=== PATIENT | female | born 2000 | race Caucasian/White ===

== ENCOUNTER 2024-11-03 12:55 | Outpatient (AMB) | payer MEDICAID, SELFPAY ==
--- NOTE | 2024-11-03 13:03 | GYNCLNT_ITS ---
Vital Signs 11/03/24 13:14 Height 1.68 m Height Method Stated Weight 163.463 kg Weight Measurement Method Standing Scale BMI 58.1 BP 134/84 H Blood Pressure Source Automatic Cuff Blood Pressure Location Left Upper Arm Position Sitting Respiration 16 Pulse 84 Pulse Source Monitor Temp 98.5 F Temp Source Oral Pulse Oximetry (%) 97 Oxygen Delivery Method Room Air Allergies/Home Meds Allergies & Medications Allergies azithromycin Allergy (Severe, Verified 11/03/24 13:15) Hives fluconazole (From Diflucan) Allergy (Severe, Verified 11/03/24 13:15) Hives kiwi Allergy (Severe, Verified 11/03/24 13:15) Anaphylaxis raspberry Allergy (Severe, Verified 11/03/24 13:15) Anaphylaxis sulfamethoxazole Allergy (Severe, Verified 11/03/24 13:15) SWELLS,BLACKS OUT, VOMITS sumatriptan (From Imitrex) Allergy (Severe, Verified 11/03/24 13:15) Anaphylaxis trimethoprim Allergy (Severe, Verified 11/03/24 13:15) SWELLS,BLACKS OUT, VOMITS cephalexin (From Keflex) Allergy (Intermediate, Verified 11/03/24 13:15) Vomiting clindamycin Allergy (Intermediate, Verified 11/03/24 13:15) Flushing nitrofurantoin (From Macrobid) Allergy (Intermediate, Verified 11/03/24 13:15) Vomiting latex Allergy (Mild, Verified 11/03/24 13:15) RASH Medication Reconciliation albuterol sulfate 90 mcg/actuation aerosol inhaler (Ventolin HFA) 2 puff inhalation Q6H PRN Wheezing 07/09/18 [History Confirmed 11/03/24] loratadine-pseudoephedrine ER 10 mg-240 mg tablet,extended [id number] (Claritin-D 24 Hour) 1 tab PO QDAY PRN Allergy Symptoms 08/06/18 [History Confirmed 11/03/24] inhalational spacing device (Aerochamber MV spacer) #1 ea 08/12/18 [Rx Confirmed 11/03/24] labetalol 200 mg tablet 200 mg PO BID 05/26/23 [History Confirmed 11/03/24] fluticasone propionate 230 mcg-salmeterol 21 mcg/actuation HFA inhaler (Advair HFA) 1 puff inhalation BID 09/16/23 [History Confirmed 11/03/24] omeprazole 40 mg capsule,delayed release 40 mg PO QDAY 09/16/23 [History Confirmed 11/03/24] labetalol 100 mg tablet 200 mg (2 x 100 mg) PO BID 30 days #120 tabs 09/18/23 [Rx Confirmed 11/03/24] cetirizine 10 mg capsule (All Day Allergy (cetirizine)) 10 mg PO QDAY PRN allergy symptoms #30 caps 02/20/24 [Rx Confirmed 11/03/24] Intake Visit Data Collection New Patient or Established: Established Patient (seen at [facility] within 3 years) Reason for Visit:: - Pap smear and breast exam - Abdominal pain associated with menstruation - Breast pain and discharge - Urinary incontinence since Seen by Clinical Staff ONLY (RN/MA): No Dog Or Animal Sitter Required: No Do You Feel Safe at Home: Yes Authorities Contacted: N/A PCP or OBGYN visit in last 3 months: Yes Hx Now: No Are you currently on any form of Control: No Last menstrual period: 10/18/24 Pain Present Currently: No Pain Scale Used: Tapia-Villarreal/Numerical Pain scale:: 0 Smoking Status Smoking Status: Never smoker 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 1. Little interest or pleasure in doing things: not at all Social History Living Situation History Lives With: Children Housing: House Tobacco History Smoking Status: Never smoker Alcohol History Alcohol Intake: Former Alcohol Intake Frequency: holidays/special occasions only Domestic Abuse History Do You Feel Safe at Home: Yes Past Medical History Past Medical History Have you ever been diagnosed with any of the following: Neurological Problems Seizures: No Cardiology Problems Congestive Heart Failure: No Hypertension: Yes Respiratory Problems Chronic Obstructive Pulmonary Disease (COPD): No Asthma: Yes Stomache/Intestinal Problems Hepatitis: No Genital/Urinary Problems Renal Disease: No Reproductive Problems Endometriosis: No Genital Herpes: No Gonorrhea: No Pelvic Inflammatory Disease: No Previous Pregnancies: Yes Syphilis: No Uterine Prolapse: No Musculoskeletal Problems Fractures: Yes Endocrine Problems Diabetes Mellitus Type 1: No Diabetes Mellitus Type 2: No Blood Problems Anemia: Yes Psychologic Problems Depression: Yes Anxiety: Yes Eating Disorder: Yes Other Problems Hospitalization: Yes Down Syndrome: No Developmental Delay: No Shingles: No Falls: No Blood Transfusions: No Blood Transfusion Reaction: No Anesthesia Reactions: No Organ Transplant: No Chemotherapy: No Radiation Therapy: No Hyperbaric Therapy: No MRSA: No VRSA: No Vancomycin-Resistant Enterococci: No Human Immunodeficiency Virus (HIV): No Chicken Pox: Yes Measles: No Mumps: Yes Rubella (Peruvian Measles): No Pertussis: No Clostridium Difficile: No Cancer: No History of Present Illness HPI Narrative Lyn Sherman presents for a routine pap smear and breast exam, with additional complaints of abdominal pain and breast-related issues. The patient reports severe abdominal pain that worsens before her menstrual period, localized in the lower abdomen and radiating upwards. She describes the pain as bad and hurting. Regarding her breast concerns, the patient mentions leaking from one breast, particularly when squeezed. She also reports pain in one breast, specifically on the side. The patient has been using a heating pad for relief when the breast pain occurs. The patient reports ongoing issues with dizziness and severe shoulder pain. She also mentions that her spine has been messed up since her first . Additionally, the patient discloses concerns, including urinary incontinence ( I leak a lot ) following a performed in August of the previous year, approximately 14 months ago. The patient reports difficulty with her daughter's sleep patterns, stating that melatonin and melatonin chamomile chewables have been ineffective in maintaining consistent sleep for her child. Lyn also mentions ongoing legal proceedings related to child support and disability claims. She reports being denied disability three years ago and is currently seeking temporary or permanent disability status due to various health issues, including hypertension and anemia. Obstetric History - GPAL: A0 L2, CSx2 - history: - Delivered via in August 2023 (approximately 1 year and 2 months ago) - Attempted , but did not latch Medical History - depression - Hypertension - Iron deficiency anemia - Chronic pain (shoulder and spine) - Dizziness Surgical History - performed approximately 1 year and 2 months ago (August 2023) Medications and Supplements - Melatonin 1 mg - Given to patient's daughter, not effective - Melatonin chamomile chewables - Given to patient's daughter, effective in inducing sleep but not maintaining it Social History - Children: Has at least one young daughter - Legal Issues: Involved in ongoing court proceedings related to child support - Occupation: Currently unable to work, applying for disability - Living Situation: Patient is the sole provider for her child - Social Support: Lacks childcare support, 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 Gastrointestinal: Positive for abdominal pain. Genitourinary: Positive for urinary incontinence. Musculoskeletal: Positive for shoulder pain, back pain. Neurological: Positive for dizziness. Psychiatric: Positive for insomnia (in daughter). Other: Positive for breast pain, nipple discharge. Exam Narrative Physical exam: Breast: Palpable cyst noted in one breast. No nipple discharge observed on examination. General Limitations: no limitations General Appearance: alert, in no apparent distress and comfortable Head Head exam: atraumatic and normocephalic Eye Eye exam: Present normal appearance, PERRL and EOMI Neck Neck exam: Present normal inspection and full ROM Chest Chest inspection: Present normal inspection and symmetric chest wall rise; Absent tenderness Resp Respiratory exam: Present normal lung sounds bilaterally; Absent respiratory distress Card Cardiovascular exam: Present regular rate and normal rhythm Abdominal Abdominal exam: Present soft and normal bowel sounds; Absent tenderness, guarding, rebound or rigidity Neuro Neurological exam: Present alert and oriented X3 Psych Psychiatric exam: Present normal affect Assessment & Plan Diagnosis / Problem List (1) Encounter for Routine Gynecological Examination: (2) depression: Status: Acute (3) Acute pain in female pelvis: Status: Acute (4) Acute breast pain: Status: Acute (5) Nipple discharge: Status: Acute (6) Solitary cyst of left breast: Status: Acute (7) Encounter for screening for malignant neoplasm of cervix: Status: Acute (8) BMI 60.0-69.9, adult: Status: Acute (9) Essential (primary) hypertension: Status: Acute (10) Anemia, unspecified: Status: Acute (11) Encounter for issue of other medical certificate: Status: Acute Plan Lyn Sherman, female, presents with abdominal pain associated with menstruation, breast pain with discharge, and concerns about disability status. Abdominal pain Assessment: Patient reports severe abdominal pain, particularly pronounced before menstruation. The pain is localized and radiates upward. No previous imaging studies have been performed to evaluate this complaint. Plan: - Order pelvic ultrasound to evaluate for potential ovarian cysts or other pelvic pathology Breast pain and discharge Assessment: Patient reports breast pain, particularly on one side. Physical examination reveals a palpable cyst. There is also nipple discharge, which is likely physiologic given the patient's recent history of childbirth (approximately 14 months ). Plan: - Order breast ultrasound to further evaluate the palpable cyst - Recommend warm compress application (wet washcloth or shower) for 5 minutes daily to unclog ducts - Educate patient on use of heating pad for pain relief - Perform clinical breast exam Cervical cancer screening Assessment: Routine cervical cancer screening due. Plan: - Perform Pap smear Disability status Assessment: Patient requests disability documentation for legal proceedings. Current medical conditions include hypertension and anemia. Patient reports being previously denied disability 3 years ago. Plan: - Complete 6-month temporary disability form citing breast complaint and depression - Recommend follow-up in March for potential 6-month extension - Advise patient to establish care with a primary care physician for evaluation of permanent disability status Obesity Assessment: Patient reports significant weight gain since childbirth, which has interfered with obtaining necessary imaging studies. Plan: - Recommend consultation with primary care physician for potential referral for bariatric surgery evaluation - Discuss possibility of weight loss medications such as Wegovy Child's sleep disturbance Assessment: Patient reports her daughter has difficulty staying asleep. Previous trials of 1 mg melatonin and melatonin-chamomile chewables have been ine ffective. Plan: - Recommend increasing melatonin dosage to 2-2.5 mg - Advise administration 30 minutes before bedtime Office Procedures OB Clinic LOC & Office Proc's Nursing/Assessment Patient Status: Established Patient OB Clinic Nursing Assessment: Medication Reconciliation, Update PMH in EMR and Vital Signs OB Clinic Coordination of Care: Complex Care and Chronic Disease 1-5, Consent,records obtained, informed consent, Education Simp Pt/Fam, Lab and Imaging orders, Results/Orders obtained and Staff clarify orders Miscellaneous Interventions: Breast Exam and Pelvic/Pap Smear Set up Established Patient Charge Established Patient Point Assignment: 155 Established Patient Point Charge: EP Level 4 (120-155) In Clinic Procedures Pap Smear: Yes
[2024-11-03 13:14] VITALS: BP 134/84; PULSE 84; RESP 16; TEMP 36.9; O2SAT 97; BMI 58.1
== END 2024-11-03 13:38 | disposition home or self-care (01) ==
LOC: HODSOBC 12:55
PROVIDERS: PCP Family Medicine; Referring Provider Family Medicine; Supervising Provider Obstetrics & Gynecology; Visit Provider Obstetrics & Gynecology
DX: Z01.411 Encounter for gynecological examination (general) (routine) with abnormal findings (principal); N60.02 Solitary cyst of left breast; O99.345 Other mental disorders complicating the puerperium; F53.0 Postpartum depression; N64.4 Mastodynia; R10.2 Pelvic and perineal pain; N64.52 Nipple discharge; I10 Essential (primary) hypertension; D50.9 Iron deficiency anemia, unspecified; E66.9 Obesity, unspecified; Z68.44 Body mass index [BMI] 60.0-69.9, adult; Z02.79 Encounter for issue of other medical certificate; Z79.899 Other long term (current) drug therapy
CPT/HCPCS: 99214; Q0091; G0463

== ENCOUNTER 2024-11-24 09:55 | Outpatient (AMB) | payer MEDICAID, SELFPAY ==
[2024-11-24 10:37] VITALS: BP 132/79; PULSE 81; RESP 18; TEMP 36; O2SAT 98; BMI 58.0
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
== END 2024-11-24 10:52 | disposition home or self-care (01) ==
LOC: HODSOBC 09:55
PROVIDERS: PCP Obstetrics & Gynecology; Referring Provider Obstetrics & Gynecology; Supervising Provider Obstetrics & Gynecology; Visit Provider Obstetrics & Gynecology
DX: Z02.79 Encounter for issue of other medical certificate (principal); Z59.87 Material hardship due to limited financial resources, not elsewhere classified; Z56.0 Unemployment, unspecified; D64.9 Anemia, unspecified; I10 Essential (primary) hypertension; F41.9 Anxiety disorder, unspecified
CPT/HCPCS: 99213; G0463

== ENCOUNTER → 2025-02-08 | Outpatient (CLI) | payer MEDICAID, SELFPAY ==
--- NOTE | 2025-02-08 15:15 | XR_ITS ---
Examination: Breast ultrasound, unilateral, left complete INDICATIONS: Palpable lump upper inner left breast one year Date and time of exam: February 08, 2025 1519 hours Technique: Real-time paez scale ultrasonographic imaging performed left breast including all 4 quadrants as well as nipple retroareolar and axillary region. Findings: No cystic or solid mass involving either breast IMPRESSION: BI-RADS Category 1: Negative study Recommend repeating the study in 6 months if palpable abnormality persist
== END | disposition home or self-care (01) ==
PROVIDERS: PCP Family Medicine; Referring Provider Obstetrics & Gynecology; Visit Provider Obstetrics & Gynecology
DX: R92.8 Other abnormal and inconclusive findings on diagnostic imaging of breast (principal)
CPT/HCPCS: 76641

== ENCOUNTER 2025-03-16 13:00 | Outpatient (AMB) | payer MEDICAID, SELFPAY ==
--- NOTE | 2025-03-16 13:32 | AMB.GYNCLNOT ---
Vital Signs 03/16/25 13:33 Height 1.68 m Height Method Stated Weight 170.097 kg Weight Measurement Method Standing Scale BMI 60.2 BP 138/83 H Blood Pressure Source Automatic Cuff Blood Pressure Location Left Upper Arm Position Sitting Respiration 16 Pulse 88 Pulse Source Monitor Temp 98.2 F Temp Source Oral Pulse Oximetry (%) 98 Oxygen Delivery Method Room Air Allergies/Home Meds Allergies & Medications Allergies azithromycin Allergy (Severe, Verified 03/16/25 13:35) Hives fluconazole (From Diflucan) Allergy (Severe, Verified 03/16/25 13:35) Hives kiwi Allergy (Severe, Verified 03/16/25 13:35) Anaphylaxis raspberry Allergy (Severe, Verified 03/16/25 13:35) Anaphylaxis sulfamethoxazole Allergy (Severe, Verified 03/16/25 13:35) SWELLS,BLACKS OUT, VOMITS sumatriptan (From Imitrex) Allergy (Severe, Verified 03/16/25 13:35) Anaphylaxis trimethoprim Allergy (Severe, Verified 03/16/25 13:35) SWELLS,BLACKS OUT, VOMITS cephalexin (From Keflex) Allergy (Intermediate, Verified 03/16/25 13:35) Vomiting clindamycin Allergy (Intermediate, Verified 03/16/25 13:35) Flushing nitrofurantoin (From Macrobid) Allergy (Intermediate, Verified 03/16/25 13:35) Vomiting latex Allergy (Mild, Verified 03/16/25 13:35) RASH Medication Reconciliation albuterol sulfate 90 mcg/actuation aerosol inhaler (Ventolin HFA) 2 puff inhalation Q6H PRN Wheezing 07/09/18 [History Confirmed 03/16/25] loratadine-pseudoephedrine ER 10 mg-240 mg tablet,extended [id number] (Claritin-D 24 Hour) 1 tab PO QDAY PRN Allergy Symptoms 08/06/18 [History Confirmed 03/16/25] inhalational spacing device (Aerochamber MV spacer) #1 ea 08/12/18 [Rx Confirmed 03/16/25] labetalol 200 mg tablet 200 mg PO BID 05/26/23 [History Confirmed 03/16/25] fluticasone propionate 230 mcg-salmeterol 21 mcg/actuation HFA inhaler (Advair HFA) 1 puff inhalation BID 09/16/23 [History Confirmed 03/16/25] omeprazole 40 mg capsule,delayed release 40 mg PO QDAY 09/16/23 [History Confirmed 03/16/25] labetalol 100 mg tablet 200 mg (2 x 100 mg) PO BID 30 days #120 tabs 09/18/23 [Rx Confirmed 03/16/25] cetirizine 10 mg capsule (All Day Allergy (cetirizine)) 10 mg PO QDAY PRN allergy symptoms #30 caps 02/20/24 [Rx Confirmed 03/16/25] Intake Visit Data Collection New Patient or Established: Established Patient (seen at [facility] within 3 years) Reason for Visit:: FOLLOW UP Seen by Clinical Staff ONLY (RN/MA): No Emergency Dept Tech Required: No Do You Feel Safe at Home: Yes Authorities Contacted: N/A PCP or OBGYN visit in last 3 months: Yes Date of Last PCP or OBGYN visit: 11/24/24 Hx Now: Yes Are you currently on any form of Control: No Pain Present Currently: No Pain Scale Used: Tapia-Villarreal/Numerical Pain scale:: 0 Smoking Status Smoking Status: Never smoker 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 Menstrual regularity: regular Flow: normal Monthly: Yes Age at menarche: 14 Menopausal: No Currently sexually 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 1. Little interest or pleasure in doing things: not at all 2. Feeling down, depressed, or hopeless: not at all Total score: 0 PHQ-9 3. Trouble falling or staying asleep, or sleeping too much: Not at all 4. Feeling tired or having little energy: Not at all 5. Poor appetite or overeating: Not at all 6. Feeling bad about yourself - or that you are a failure or have let yourself or your family down: Not at all 7. Trouble concentrating on things, such as reading the newspaper or watching television: Not at all 8. Moving or speaking so slowly that other people could have noticed? - Or the opposite - being so fidgety or restless that you have been moving around a lot more than usual: not at all 9. Thoughts that you would be better off or of hurting yourself in some way: Not at all Total score: 0 If you checked off any problems, how difficult have these problems made it for you to do your work, take care of things at home, or get along with other people?: not difficult at all Source: Developed by Drs. Aleksandr Martinez, Hermelinda Marcus, Tera Matthews and colleagues, with an educational aki from [employer]. Depression screen completed yes Social History Living Situation History Lives With: Children Housing: House Tobacco History Smoking Status: Never smoker Second Hand Smoke Exposure: No Alcohol History Alcohol Intake: Former Alcohol Intake Frequency: holidays/special occasions only Domestic Abuse History Do You Feel Safe at Home: Yes History of Present Illness HPI Narrative Lyn Sherman presents with ongoing exhaustion and stress related to childcare and a custody case, 3 months following a previous evaluation for depression in October. Her primary concern is her younger child's sleep issues, having tried melatonin for two months with increasing doses. She reports the medication helps the child fall asleep initially but doesn't maintain sleep throughout the night, with awakening after an hour. The child also exhibits concerning behavior, hitting herself in the head when angry. The patient reports persistent pain primarily located on her left side in the area where she previously had a tie. The pain is most noticeable when lying in bed with legs stretched out, causing difficulty moving in the morning. She inquires about using a brace or abdominal binder for support. She has a history of two pregnancies resulting in depression after her most recent delivery. The patient mentions her equipment engineer at [facility] has not yet performed a workup but advised to inform her if the situation worsens. The patient has been taking melatonin, which she discontinued due to ineffectiveness after trying it for two months straight with increased dosing. Her psychosocial stressors include an ongoing custody case and child support dispute, with the court postponing the child support case until next month, causing additional stress as her ex-partner is contesting payments. She expresses concern about the potential impact of her depression on the custody case. She is a mother of two with an obstetric history of A0 L2. The patient has two children and is dealing with legal issues including custody and child support cases while managing her ongoing exhaustion and stress. ROS: Positive for exhaustion, abdominal pain on the left side worse when lying with legs stretched out and difficulty moving in the morning, and stress. Negative except as stated above. Exam General General Appearance: alert, in no apparent distress and healthy appearing Head Head exam: atraumatic Neck Neck exam: Present normal inspection and trachea midline Chest Chest inspection: Present normal inspection and symmetric chest wall rise External exam: Present normal external exam; Absent tenderness Neuro Neurological exam: Present oriented X3 Psych Psychiatric exam: Present normal affect and normal mood Office Procedures OB Clinic LOC & Office Proc's Nursing/Assessment Patient Status: Established Patient OB Clinic Nursing Assessment: Medication Reconciliation, Update PMH in EMR and Vital Signs OB Clinic Coordination of Care: Education Complex Pt/Fam, Consent,records obtained, informed consent, Lab and Imaging orders, Results/Orders obtained and Staff clarify orders Miscellaneous Interventions: Blood/Urine Collection Established Patient Charge Established Patient Point Assignment: 115 Established Patient Point Charge: EP Level 3 (80-115) Results Urine HCG Urine HCG Negative Last Edit by Rachael Alva MA on 03/16/25 13:37 Assessment & Plan Diagnosis / Problem List (1) Abnormal findings on diagnostic imaging of other specified body structures: Status: Acute (2) Other complications of the puerperium, not elsewhere classified: Status: Acute Plan Depression: - Patient previously evaluated for depression in October with ongoing concerns. 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 - Stressors may be exacerbating her condition. Plan: - Continue monitoring patient's mental health status. - Reassess at next follow-up appointment. - Provide necessary documentation for court proceedings as requested. - Continue to monitor impact of legal proceedings on patient's mental health. Pediatric Sleep Disorder: - Child not sleeping well with ineffective melatonin treatment over 2 months. - Child wakes up after an hour despite dose increases. - Child exhibits self-injurious behavior when angry. Plan: - Recommend follow-up with equipment engineer Dr. Macias at [facility] for comprehensive sleep evaluation and to address self-injurious behavior. - Discontinue melatonin as it is not effective. Breast Mass Concern: - Recent breast ultrasound shows no mass or cysts, only normal breast tissue. - Findings likely due to post- hormonal changes. Plan: - No further imaging or intervention needed at this time. - Continue routine breast health monitoring. Abdominal Pain: - Pain primarily on left side in area of previous tubal ligation. - Pain worse in morning when stretching legs in bed. - Differential diagnoses include muscle knot in oblique muscles, trapped tissue, or possible hernia. Plan: - Prescribe abdominal binder for gentle support. - Refer to Dr. Marcelino Hernandez for further evaluation and potential CT scan ordering. - If CT scan shows positive findings, consider surgical intervention for hernia repair or tissue release.
[2025-03-16 13:33] VITALS: BP 138/83; PULSE 88; RESP 16; TEMP 36.8; O2SAT 98; BMI 60.2
== END 2025-03-16 14:01 | disposition home or self-care (01) ==
PROVIDERS: Supervising Provider Obstetrics & Gynecology; Visit Provider Obstetrics & Gynecology
DX: O99.345 Other mental disorders complicating the puerperium (principal); F53.0 Postpartum depression; R93.89 Abnormal findings on diagnostic imaging of other specified body structures; R10.9 Unspecified abdominal pain; I10 Essential (primary) hypertension; Z98.51 Tubal ligation status; Z79.899 Other long term (current) drug therapy; Z88.1 Allergy status to other antibiotic agents; Z91.040 Latex allergy status
CPT/HCPCS: 99213; G0463